=== PATIENT | male | born 2000 | race Hispanic/Latino ===

== ENCOUNTER 2020-12-07 19:59 | Emergency (ER) | payer OTHER ==
[~2020-12-07] VITALS: Ht 177.8 cm; Wt 66.9 kg
[2020-12-07 20:00] VITALS: BP 140/74
--- NOTE | 2020-12-08 01:50 | REPVR ---
PROCEDURE INFORMATION: Exam: XR Left Finger(s) Exam date and time: 12/07/2020 12:08 AM Age: 20 years old Clinical indication: Other: Left index finger contusion/lac TECHNIQUE: Imaging protocol: XR Left fingers. Views: Minimum 2 views. COMPARISON: No relevant prior studies available. FINDINGS: Bones/joints: Joint spaces are normal. No fracture or malalignment. Soft tissues: Small soft tissue laceration in the tip of the finger. No foreign bodies. IMPRESSION: 1. No fracture or malalignment. 2. No foreign bodies. Electronically signed by: Reggie Willis On 12/08/2020 01:49:58 AM
== END 2020-12-08 02:19 | disposition home or self-care (01) ==
LOC: M ED 19:59
DX: S60.411A Abrasion of left index finger, initial encounter (principal); S60.122A Contusion of left index finger with damage to nail, initial encounter; W23.0XXA Caught, crushed, jammed, or pinched between moving objects, initial encounter; Y92.818 Other transport vehicle as the place of occurrence of the external cause; Y93.89 Activity, other specified; Y99.1 Military activity